=== PATIENT | female | born 1960 | race American Indian/Alaskan Native ===

== ENCOUNTER 2017-01-26 11:14 | Day surgery (SDC) | payer MEDICAID ==
[2017-01-20 09:25] VITALS: BMI 28.5
[2017-01-26 12:04] VITALS: O2SAT 100
[2017-01-26] MEDS ORDERED: Midazolam 2 MG/2 ML VIAL ONE (12:54)
[2017-01-26] MEDS ORDERED: Propofol 10 mg/ml Inj (20 ML) ONE (12:54)
[2017-01-26] MEDS ORDERED: Lidocaine 1% Inj (20ml) ONE (12:55)
[2017-01-26] MEDS ORDERED: Bupivacaine HCl 0.25% PF (10 ml) Inj ONE (12:55)
[2017-01-26] MEDS ORDERED: ceFAZolin IV 1 gm in Dextrose 1 GM/50 ML BAG IVPB ONE (12:56)
[2017-01-26] MEDS ORDERED: Oxycodone/Acetaminophen 5/325 mg Tab PO PRN (13:50)
[2017-01-26] MEDS ORDERED: HYDROmorphone 0.5 mg/0.5 ml ISec IVP PRN (13:51)
[2017-01-26] MEDS ORDERED: Lactated Ringer's 1,000 ML IV SCH (14:00)
[2017-01-26 14:08] VITALS: TEMP 97.2
[2017-01-26 15:02] VITALS: BP 149/65; PULSE 58; RESP 18
--- NOTE | 2017-02-02 17:31 | PCM.OP ---
Operative Report - Operative Report Date of Surgery/Procedure: 01/26/17 Time of Surgery/Procedure: 12:00 Surgeon: Dr. Larios Anesthesia/Sedation: Local Sedation Pre-Operative Diagnosis: 5 cm tumor of right ankle Post-Operative Diagnosis: 5 cm tumor of right ankle Indication for Surgery: 56 y/o female presented to office with a 5 cm mass on the anterior aspect of right ankle. She states that it rapidly increased in size over the past year and now presents for surgical removal. Operative Findings: 5 cm tumor Procedure/Operation Description: Radical resection 5 cm tumor of right ankle with adjacent tissue transfer closure. Pt was taken to operating room and after IV sedation was administered the right ankle was prepped and draped. A generous eliptical incision was made trying the 5 cm mass and was excised into fascia layer and muscle. Bleeding was controlled using the bovie. A greater than 30 cm adjacent tissue transfer closure was performed by widely mobilizing and undermining the skin distally and proximally using multiple layers of heavy Monocryl, subcuticular Monocryl, and skin clips. Estimated Blood Loss: 20cc Complications: Zero Discharge & Condition: Pt tolerated procedure well and returned to recovery room in stable condition.
--- NOTE | 2017-02-10 22:21 | OP ---
PROCEDURE DATE: 01/26/2017 PREOPERATIVE DIAGNOSIS: A 5 cm mass in the right ankle. POSTOPERATIVE DIAGNOSIS: A 5 cm mass in the right ankle. PROCEDURE: Wide deep excision of 5-7 cm mass of the right ankle with adjacent tissue transfer closure. SURGEON: Dr. Larios. TYPE OF ANESTHESIA: General. ESTIMATED BLOOD LOSS: 30 mL POSTOPERATIVE CONDITION: Stable. DESCRIPTION OF PROCEDURE: The patient was taken to the operating room and general anesthesia was administered. The right foot, ankle and leg were prepped and draped. A generous elliptical transverse incision was made surrounding the mass overlying the anterior ankle at the junction with the foot. A wide deep excision was performed by excising it down to the facial layer. Bleeding was controlled using the Bovie. A larger blood vessel was repaired and the wound was irrigated with copious amounts of saline. Generous tissue flaps were raised using the Bovie and adjacent tissue transverse closure was performed of greater than 30 sq cm using multiple layers of Monocryl, subcuticular Monocryl, and skin clips. The patient tolerated the procedure well. Returned to recovery room in stable condition. Dylan Larios MD
== END 2017-01-26 15:30 | disposition home or self-care (01) ==
LOC: C.SDS 11:14
PROVIDERS: ATTEND Surgery
DX: D23.71 Other benign neoplasm of skin of right lower limb, including hip (principal)
CPT/HCPCS: 11403; 88305; 88342; 97116; 97161; G8978; G8979; G8980; J0690; J2001; J2250; J2704; J3010